=== PATIENT | male | born 1935 | race Caucasian/White ===

== ENCOUNTER 2018-02-08 21:59 | Inpatient (IN) | payer MEDICARE, MEDICAID ==
[~2018-02-08] VITALS: Ht 177.8 cm; Wt 65.0 kg
[~2018-02-08 21:59] MED LIST: ALEN70TA48 PO; AMIO200T54 PO; APIX5TAB3 PO; ATOR40TA PO; CARV3.12 PO; COMP-13; DOCU-29 PO; FERR325T28 PO; FOLI1TAB16 PO; FURO40TA4 PO; LISI-604 PO; PER10325T PO; ROSU20TA PO
[2018-02-08] MEDS ORDERED: fentaNYL/PF 50MCG/1 ML 2ML syringe IV ONE ×2 (22:20→23:55)
[2018-02-08] MEDS ORDERED: TETanus/Pertussis (Acell)/Diphther VAC/PF (Tdap-Adult) 0.5ml syringe IM ONE (22:55)
[2018-02-08 23:23] LABS: BASOPHILS % (AUTO) 0.5 % (0-1); EOSINOPHILS # (AUTO) 0.2 X10'3 (0-0.9); HEMATOCRIT 43.7 % (42.0-52.0); HEMOGLOBIN 14.9 g/dl (14.0-17.9); LYMPHOCYTES # (AUTO) 1.5 X10'3 (1.1-4.8); LYMPHOCYTES % (AUTO) 17.6 % (21-51); MEAN CORPUSCULAR HEMOGLOBIN 31.7 PG (27.0-31.0); MEAN CORPUSCULAR HGB CONC 34.1 % (33.0-36.5); MONOCYTES # (AUTO) 0.5 X10'3 (0-0.9); MONOCYTES % (AUTO) 5.7 % (2-12); NEUTROPHILS # (AUTO) 6.2 X10'3 (1.8-7.7); NEUTROPHILS % (AUTO) 74.2 % (42-75); PLATELET COUNT 147 X10'3 (140-440); RED BLOOD COUNT 4.71 X10'6 (4.70-6.10); RED CELL DISTRIBUTION WIDTH 13.9 % (11.5-14.5); WHITE BLOOD COUNT 8.3 X10'3 (4.5-11.0)
[2018-02-08 23:32] LABS: INR 1.2 INR; PARTIAL THROMBOPLASTIN TIME 29 SECONDS (22-32)
[2018-02-08 23:39] LABS: ALANINE AMINOTRANSFERASE 21 U/L (12-78); ALBUMIN 3.4 G/DL (3.4-5.0); ALBUMIN/GLOBULIN RATIO 1.1 (1.1-1.5); ALKALINE PHOSPHATASE 110 IU/L (46-116); ANION GAP 7 (8-16); ASPARTATE AMINO TRANSFERASE 14 U/L (10-37); BILIRUBIN,TOTAL 0.7 MG/DL (0.1-1.0); BLOOD UREA NITROGEN 21 MG/DL (7-18); BUN/CREATININE RATIO 18.6 (5.4-32.0); CALCIUM 9.4 MG/DL (8.5-10.1); CHLORIDE 103 MMOL/L (99-107); CREATININE 1.13 MG/DL (0.60-1.10); GLUCOSE 120 MG/DL (70-104); POTASSIUM 4.1 MMOL/L (3.5-5.1); SODIUM 136 MMOL/L (135-145); TOTAL CARBON DIOXIDE 26.5 MMOL/L (24-32); TOTAL PROTEIN 6.5 G/DL (6.4-8.2); eGFR 62 ML/MIN
[2018-02-08 23:43] LABS: GIANT PLATELET FEW; LARGE PLATELETS FEW; PLATELET ESTIMATE NORMAL
[2018-02-08 23:46] LABS: CLARITY,URINE CLOUDY (Clear); COLOR,URINE YELLOW (Yellow); GLUCOSE, URINE NEGATIVE (Neg); KETONES,URINE TRACE mg/dl (Neg); LEUKOCYTE ESTERASE ,URINE TRACE (Neg); NITRITES, URINE NEGATIVE (Neg); OCCULT BLOOD,URINE NEGATIVE (Neg); PH,URINE 5.5 (4.8-8.0); PROTEIN,URINE TRACE mg/dl (Neg); UROBILINOGEN,URINE 0.2 E.U/dL (0.2-1.0)
[2018-02-08 23:50] LABS: UA COLLECTION TYPE CLN CATCH MIDSTREAM
[2018-02-08 23:51] LABS: MUCUS STRANDS FEW /LPF (Neg); SQUAMOUS EPITHELIAL CELL,UR FEW /LPF (FEW); YEAST MANY /HPF (NEGATIVE)
[2018-02-08 23:52] LABS: BACTERIA,URINE FEW /HPF (Neg)
[2018-02-08 23:53] LABS: HYALINE CASTS 0-3 /LPF (NEGATIVE); RBC,URINE 0-2 /HPF (0-2); WBC,URINE 20-30 /HPF (0-4)
[2018-02-09] VITALS (19 sets, daily range): BP systolic 105–155; BP diastolic 48–96
[2018-02-09] MEDS ORDERED: CefTRIAXone 2gm/D5W 50ml 50 ML IV ONE (00:35)
[2018-02-09] MEDS ORDERED: morphine 4 MG/ML inj SYRINge IV PRN ×3 (01:35→15:10)
[2018-02-09] MEDS ORDERED: mag hydrox/Alum hydrox/simeth 30ml oral suspension PO PRN (01:35)
[2018-02-09] MEDS ORDERED: acetaminophen 325mg tablet PO PRN ×2 (01:35)
[2018-02-09] MEDS ORDERED: docusate sod 100mg capsule PO PRN (01:35)
[2018-02-09] MEDS ORDERED: ondansetron/PF 4mg/2ml inj IV PRN ×2 (01:35→15:10)
[2018-02-09] MEDS ORDERED: morphine 2 MG/ML inj. syringe IV ONE (01:45)
[2018-02-09] MEDS: normal saline 1000ml 1,000 ML IV SCH ×2 (03:43→19:23)
[2018-02-09] MEDS ORDERED: ceFAZolin 1000mg inj ONE (11:16)
[2018-02-09] MEDS ORDERED: vancomycin 1,000mg inj ONE (11:16)
[2018-02-09] MEDS ORDERED: ceFAZolin 1GM/D5W- ADD-VANTAGE 50 ML IV SCH ×2 (12:00→16:00)
[2018-02-09] MEDS: CefTRIAXone 2gm/D5W 50ml 50 ML IV SCH (12:00)
[2018-02-09] MEDS ORDERED: fentaNYL/PF 50MCG/1 ML 2ML syringe ONE ×2 (12:18→13:25)
[2018-02-09] MEDS ORDERED: midazolam 2 mg/2 ml injection ONE (12:21)
[2018-02-09] MEDS ORDERED: ringers solution, lacted 1,000 ML IV SCH (15:10)
[2018-02-09] MEDS ORDERED: meperidine/PF 25mg/ml syringe IV PRN ×3 (15:10)
[2018-02-09] MEDS ORDERED: proCHLORperazine 10 MG/2 ml inj IV PRN (15:10)
[2018-02-09] MEDS ORDERED: phenylephrine 10mg/ml inj. ONE (15:22)
[2018-02-09] MEDS ORDERED: propofol inj 20 ML IV ONE (15:22)
[2018-02-09] MEDS ORDERED: LIDOcaine 1%/PF 5ML 10 MG/ML VIAL ONE (15:22)
[2018-02-09] MEDS: morphine 4 MG/ML inj SYRINge IV PRN ×2 (17:38→23:50)
[2018-02-09] MEDS: ceFAZolin 1GM/D5W- ADD-VANTAGE 50 ML IV SCH (20:55)
[2018-02-10 02:15] VITALS: BP 99/64
[2018-02-10] MEDS: ceFAZolin 1GM/D5W- ADD-VANTAGE 50 ML IV SCH (05:00)
[2018-02-10] MEDS: morphine 4 MG/ML inj SYRINge IV PRN ×2 (05:04→08:43)
[2018-02-10 06:00] VITALS: BP 139/72
[2018-02-10 07:42] LABS: BASOPHILS % (AUTO) 0.4 % (0-1); EOSINOPHILS % (AUTO) 0.2 % (0-6); HEMATOCRIT 38.2 % (42.0-52.0); HEMOGLOBIN 12.9 g/dl (14.0-17.9); LYMPHOCYTES # (AUTO) 1.2 X10'3 (1.1-4.8); LYMPHOCYTES % (AUTO) 14.5 % (21-51); MEAN CORPUSCULAR HEMOGLOBIN 31.2 PG (27.0-31.0); MEAN CORPUSCULAR HGB CONC 33.8 % (33.0-36.5); MEAN CORPUSCULAR VOLUME 92.5 FL (78-98); MEAN PLATELET VOLUME 11.4 FL (7.4-10.4); MONOCYTES # (AUTO) 0.9 X10'3 (0-0.9); MONOCYTES % (AUTO) 10.7 % (2-12); NEUTROPHILS # (AUTO) 6.3 X10'3 (1.8-7.7); NEUTROPHILS % (AUTO) 74.2 % (42-75); PLATELET COUNT 128 X10'3 (140-440); RED BLOOD COUNT 4.13 X10'6 (4.70-6.10); RED CELL DISTRIBUTION WIDTH 14.1 % (11.5-14.5); WHITE BLOOD COUNT 8.5 X10'3 (4.5-11.0)
[2018-02-10 08:00] LABS: ALBUMIN 2.6 G/DL (3.4-5.0); ANION GAP 6 (8-16); BLOOD UREA NITROGEN 14 MG/DL (7-18); BUN/CREATININE RATIO 13.6 (5.4-32.0); CALCIUM 8.6 MG/DL (8.5-10.1); CHLORIDE 105 MMOL/L (99-107); CREATININE 1.03 MG/DL (0.60-1.10); GLUCOSE 106 MG/DL (70-104); POTASSIUM 4.2 MMOL/L (3.5-5.1); SODIUM 137 MMOL/L (135-145); TOTAL CARBON DIOXIDE 26.2 MMOL/L (24-32); eGFR 69 ML/MIN
[2018-02-10 08:35] LABS: LARGE PLATELETS FEW; PLATELET ESTIMATE DECREASED
[2018-02-10] MEDS: normal saline 1000ml 1,000 ML IV SCH ×2 (09:56→20:46)
[2018-02-10 10:00] VITALS: BP 134/114
[2018-02-10] MEDS ORDERED: carVEDilol 3.125mg tablet PO SCH (10:35)
[2018-02-10] MEDS: apixaban 5mg tablet PO SCH ×2 (11:00→21:21)
[2018-02-10] MEDS: HYDROcodone/acetaminophen 10/325mg tab PO PRN ×2 (11:01→16:22)
[2018-02-10] MEDS: CefTRIAXone 2gm/D5W 50ml 50 ML IV SCH (12:09)
[2018-02-10] MEDS ORDERED: KEN0.1O TP (12:40)
[2018-02-10] MEDS ORDERED: OMEP40CA37 PO (12:42)
[2018-02-10] MEDS ORDERED: TERA1CAP4 PO (12:43)
[2018-02-10] MEDS ORDERED: LEVO50TA66 PO (12:45)
[2018-02-10] MEDS ORDERED: TERB30CR22 TP (12:46)
[2018-02-10] MEDS ORDERED: PREG50CA PO (12:48)
[2018-02-10] MEDS ORDERED: FLUO20CA39 PO (12:49)
[2018-02-10] MEDS ORDERED: LEVO75TA7 PO (12:52)
[2018-02-10] MEDS ORDERED: MYCOL15O TP (12:54)
[2018-02-10] MEDS ORDERED: SEVE800T8 PO (12:56)
[2018-02-10] MEDS ORDERED: ROPI1TAB2 PO (12:59)
[2018-02-10] MEDS ORDERED: EPOE1000 SUBCUT (14:32)
[2018-02-10] MEDS ORDERED: sevelamer carbonate 800mg tablet PO SCH (16:00)
[2018-02-10 18:00] VITALS: BP 97/57
[2018-02-10] MEDS: carVEDilol 3.125mg tablet PO SCH (20:00)
[2018-02-10] MEDS: furosemide 40mg tablet PO SCH (20:00)
[2018-02-10] MEDS: triamcinolone acet 0.1% cream 15gm TP SCH (20:00)
[2018-02-10] MEDS: Terazosin 1mg capsule PO SCH (20:56)
[2018-02-10] MEDS ORDERED: non-formulary drug (Atorvastatin Calcium* (Lipitor*) 1 TABLET) PO SCH (21:00)
[2018-02-10] MEDS ORDERED: ROPINIRole 1mg tablet PO SCH (21:00)
[2018-02-10] MEDS: atorvastatin 20mg tablet PO SCH (21:21)
[2018-02-10] MEDS: amiodarone 200mg tablet PO SCH (21:21)
[2018-02-10 22:00] VITALS: BP 109/55
[2018-02-11] MEDS: normal saline 1000ml 1,000 ML IV SCH ×2 (01:13→15:18)
[2018-02-11] MEDS: HYDROcodone/acetaminophen 10/325mg tab PO PRN ×2 (05:17→20:01)
[2018-02-11] MEDS: magnesium hydroxide 30ml (MOM) UD suspension PO PRN (05:17)
[2018-02-11 06:00] VITALS: BP 140/63
[2018-02-11 06:56] LABS: BASOPHILS % (AUTO) 0.3 % (0-1); EOSINOPHILS % (AUTO) 0.2 % (0-6); HEMATOCRIT 35.6 % (42.0-52.0); HEMOGLOBIN 11.8 g/dl (14.0-17.9); LYMPHOCYTES % (AUTO) 9.7 % (21-51); MEAN CORPUSCULAR HEMOGLOBIN 30.9 PG (27.0-31.0); MEAN CORPUSCULAR HGB CONC 33.1 % (33.0-36.5); MEAN CORPUSCULAR VOLUME 93.2 FL (78-98); MEAN PLATELET VOLUME 11.4 FL (7.4-10.4); MONOCYTES % (AUTO) 9.7 % (2-12); NEUTROPHILS # (AUTO) 8.1 X10'3 (1.8-7.7); NEUTROPHILS % (AUTO) 80.1 % (42-75); PLATELET COUNT 113 X10'3 (140-440); RED BLOOD COUNT 3.82 X10'6 (4.70-6.10); RED CELL DISTRIBUTION WIDTH 14.4 % (11.5-14.5); WHITE BLOOD COUNT 10.1 X10'3 (4.5-11.0)
[2018-02-11 07:24] LABS: ALBUMIN 2.3 G/DL (3.4-5.0); ANION GAP 6 (8-16); BLOOD UREA NITROGEN 17 MG/DL (7-18); BUN/CREATININE RATIO 16.2 (5.4-32.0); CALCIUM 8.6 MG/DL (8.5-10.1); CHLORIDE 105 MMOL/L (99-107); CREATININE 1.05 MG/DL (0.60-1.10); GLUCOSE 103 MG/DL (70-104); SODIUM 138 MMOL/L (135-145); TOTAL CARBON DIOXIDE 26.9 MMOL/L (24-32); eGFR 67 ML/MIN
[2018-02-11 07:56] LABS: LARGE PLATELETS FEW; PLATELET ESTIMATE DECREASED
[2018-02-11] MEDS: docusate sod 100mg capsule PO SCH (08:00)
[2018-02-11] MEDS: triamcinolone acet 0.1% cream 15gm TP SCH ×2 (08:00→20:00)
[2018-02-11] MEDS ORDERED: FLUoxetine 20mg capsule PO SCH (08:00)
[2018-02-11] MEDS: pantoprazole 40mg Tablet.DR PO SCH (09:57)
[2018-02-11] MEDS: carVEDilol 3.125mg tablet PO SCH ×2 (09:58→20:00)
[2018-02-11] MEDS: lisinopril 5mg tablet PO SCH (09:58)
[2018-02-11] MEDS: apixaban 5mg tablet PO SCH ×2 (09:59→20:01)
[2018-02-11] MEDS: folic acid 1mg tablet PO SCH (09:59)
[2018-02-11 10:00] VITALS: BP 96/72
[2018-02-11] MEDS: amiodarone 200mg tablet PO SCH ×2 (10:00→20:00)
[2018-02-11] MEDS: furosemide 40mg tablet PO SCH ×2 (10:01→20:00)
[2018-02-11] MEDS: levoTHYROXINE 75mcg tablet PO SCH (10:02)
[2018-02-11] MEDS: CefTRIAXone 2gm/D5W 50ml 50 ML IV SCH (12:18)
[2018-02-11 18:00] VITALS: BP 91/56
[2018-02-11] MEDS: lactobacillus rhamnosus 10,000 MMU CELLS/CAPSULE PO SCH (20:01)
[2018-02-11] MEDS: Terazosin 1mg capsule PO SCH (21:00)
[2018-02-11] MEDS: atorvastatin 20mg tablet PO SCH (21:00)
[2018-02-11 22:00] VITALS: BP 92/57
[2018-02-12] MEDS: HYDROcodone/acetaminophen 10/325mg tab PO PRN ×3 (04:48→22:19)
[2018-02-12 05:00] VITALS: BP 100/65
[2018-02-12] MEDS: triamcinolone acet 0.1% cream 15gm TP SCH ×2 (08:00→20:00)
[2018-02-12] MEDS: levoTHYROXINE 75mcg tablet PO SCH (08:00)
[2018-02-12] MEDS: lisinopril 5mg tablet PO SCH (08:00)
[2018-02-12] MEDS: furosemide 40mg tablet PO SCH ×2 (08:00→20:00)
[2018-02-12 10:09] VITALS: BP 123/77
[2018-02-12] MEDS: amiodarone 200mg tablet PO SCH ×2 (10:12→20:22)
[2018-02-12] MEDS: docusate sod 100mg capsule PO SCH (10:12)
[2018-02-12] MEDS: pantoprazole 40mg Tablet.DR PO SCH (10:12)
[2018-02-12] MEDS: apixaban 5mg tablet PO SCH ×2 (10:13→20:22)
[2018-02-12] MEDS: lactobacillus rhamnosus 10,000 MMU CELLS/CAPSULE PO SCH ×2 (10:13→20:22)
[2018-02-12] MEDS: carVEDilol 3.125mg tablet PO SCH ×2 (10:13→20:00)
[2018-02-12] MEDS: folic acid 1mg tablet PO SCH (10:13)
[2018-02-12 13:35] LABS: BASOPHILS % (AUTO) 0.2 % (0-1); EOSINOPHILS # (AUTO) 0.1 X10'3 (0-0.9); EOSINOPHILS % (AUTO) 0.9 % (0-6); HEMATOCRIT 34.6 % (42.0-52.0); HEMOGLOBIN 11.4 g/dl (14.0-17.9); LYMPHOCYTES # (AUTO) 0.9 X10'3 (1.1-4.8); LYMPHOCYTES % (AUTO) 10.5 % (21-51); MEAN CORPUSCULAR HGB CONC 32.9 % (33.0-36.5); MEAN CORPUSCULAR VOLUME 94.2 FL (78-98); MONOCYTES # (AUTO) 0.4 X10'3 (0-0.9); MONOCYTES % (AUTO) 4.5 % (2-12); NEUTROPHILS # (AUTO) 7.2 X10'3 (1.8-7.7); NEUTROPHILS % (AUTO) 83.9 % (42-75); PLATELET COUNT 140 X10'3 (140-440); RED BLOOD COUNT 3.67 X10'6 (4.70-6.10); RED CELL DISTRIBUTION WIDTH 14.6 % (11.5-14.5); WHITE BLOOD COUNT 8.6 X10'3 (4.5-11.0)
[2018-02-12 13:57] LABS: ALBUMIN 2.3 G/DL (3.4-5.0); ANION GAP 6 (8-16); BLOOD UREA NITROGEN 25 MG/DL (7-18); BUN/CREATININE RATIO 22.5 (5.4-32.0); CALCIUM 9.2 MG/DL (8.5-10.1); CHLORIDE 105 MMOL/L (99-107); CREATININE 1.11 MG/DL (0.60-1.10); GLUCOSE 115 MG/DL (70-104); POTASSIUM 3.8 MMOL/L (3.5-5.1); SODIUM 138 MMOL/L (135-145); TOTAL CARBON DIOXIDE 26.9 MMOL/L (24-32); eGFR 63 ML/MIN
[2018-02-12] MEDS: albuterol 1.25 MG/3 ML (1/2 strength) nebule NEB SCH ×3 (17:55→23:00)
[2018-02-12 18:00] VITALS: BP 99/49
[2018-02-12] MEDS: Terazosin 1mg capsule PO SCH (20:14)
[2018-02-12] MEDS: atorvastatin 20mg tablet PO SCH (20:23)
[2018-02-12] MEDS: magnesium hydroxide 30ml (MOM) UD suspension PO PRN (21:59)
[2018-02-12 22:00] VITALS: BP 92/86
[2018-02-13] MEDS: albuterol 1.25 MG/3 ML (1/2 strength) nebule NEB SCH ×4 (03:12→15:00)
[2018-02-13 05:00] VITALS: BP 105/89
[2018-02-13] MEDS: HYDROcodone/acetaminophen 10/325mg tab PO PRN ×2 (05:30→15:02)
[2018-02-13 06:55] LABS: BASOPHILS % (AUTO) 0.5 % (0-1); EOSINOPHILS # (AUTO) 0.2 X10'3 (0-0.9); HEMATOCRIT 31.5 % (42.0-52.0); HEMOGLOBIN 10.5 g/dl (14.0-17.9); LYMPHOCYTES # (AUTO) 0.9 X10'3 (1.1-4.8); LYMPHOCYTES % (AUTO) 11.3 % (21-51); MEAN CORPUSCULAR HGB CONC 33.4 % (33.0-36.5); MEAN CORPUSCULAR VOLUME 92.8 FL (78-98); MEAN PLATELET VOLUME 9.9 FL (7.4-10.4); MONOCYTES # (AUTO) 0.6 X10'3 (0-0.9); MONOCYTES % (AUTO) 7.5 % (2-12); NEUTROPHILS # (AUTO) 6.2 X10'3 (1.8-7.7); NEUTROPHILS % (AUTO) 78.7 % (42-75); PLATELET COUNT 156 X10'3 (140-440); RED BLOOD COUNT 3.39 X10'6 (4.70-6.10); RED CELL DISTRIBUTION WIDTH 14.5 % (11.5-14.5); WHITE BLOOD COUNT 7.8 X10'3 (4.5-11.0)
[2018-02-13 07:18] LABS: ALBUMIN 2.2 G/DL (3.4-5.0); ANION GAP 6 (8-16); BLOOD UREA NITROGEN 28 MG/DL (7-18); CHLORIDE 106 MMOL/L (99-107); CREATININE 1.12 MG/DL (0.60-1.10); GLUCOSE 110 MG/DL (70-104); POTASSIUM 3.9 MMOL/L (3.5-5.1); SODIUM 140 MMOL/L (135-145); TOTAL CARBON DIOXIDE 28.4 MMOL/L (24-32); eGFR 62 ML/MIN
[2018-02-13 07:27] VITALS: BP 97/50
[2018-02-13] MEDS: amiodarone 200mg tablet PO SCH ×2 (07:28→20:00)
[2018-02-13] MEDS: pantoprazole 40mg Tablet.DR PO SCH (07:28)
[2018-02-13] MEDS: docusate sod 100mg capsule PO SCH (07:28)
[2018-02-13] MEDS: levoTHYROXINE 75mcg tablet PO SCH (07:29)
[2018-02-13] MEDS: apixaban 5mg tablet PO SCH ×2 (07:29→20:00)
[2018-02-13] MEDS: lactobacillus rhamnosus 10,000 MMU CELLS/CAPSULE PO SCH ×2 (07:29→20:00)
[2018-02-13] MEDS: furosemide 40mg tablet PO SCH ×2 (07:29→20:00)
[2018-02-13] MEDS: lisinopril 5mg tablet PO SCH (07:29)
[2018-02-13] MEDS: carVEDilol 3.125mg tablet PO SCH ×2 (07:29→20:00)
[2018-02-13] MEDS: folic acid 1mg tablet PO SCH (07:29)
[2018-02-13] MEDS: triamcinolone acet 0.1% cream 15gm TP SCH ×2 (08:00→20:00)
[2018-02-13 10:00] VITALS: BP 97/56
[2018-02-13 18:00] VITALS: BP 123/66
[2018-02-13 20:53] VITALS: BP 96/58
[2018-02-13] MEDS: Terazosin 1mg capsule PO SCH (20:56)
[2018-02-13] MEDS: atorvastatin 20mg tablet PO SCH (20:57)
[2018-02-14] MEDS: HYDROcodone/acetaminophen 10/325mg tab PO PRN ×4 (01:43→14:45)
[2018-02-14 06:00] VITALS: BP 121/71
[2018-02-14 06:09] LABS: BASOPHILS % (AUTO) 0.2 % (0-1); EOSINOPHILS # (AUTO) 0.1 X10'3 (0-0.9); EOSINOPHILS % (AUTO) 1.1 % (0-6); HEMATOCRIT 32.3 % (42.0-52.0); HEMOGLOBIN 10.8 g/dl (14.0-17.9); LYMPHOCYTES % (AUTO) 12.1 % (21-51); MEAN CORPUSCULAR HEMOGLOBIN 31.2 PG (27.0-31.0); MEAN CORPUSCULAR HGB CONC 33.2 % (33.0-36.5); MEAN PLATELET VOLUME 10.6 FL (7.4-10.4); MONOCYTES # (AUTO) 0.7 X10'3 (0-0.9); MONOCYTES % (AUTO) 8.6 % (2-12); NEUTROPHILS # (AUTO) 6.3 X10'3 (1.8-7.7); PLATELET COUNT 191 X10'3 (140-440); RED BLOOD COUNT 3.44 X10'6 (4.70-6.10); RED CELL DISTRIBUTION WIDTH 14.5 % (11.5-14.5); WHITE BLOOD COUNT 8.1 X10'3 (4.5-11.0)
[2018-02-14 06:14] LABS: ALBUMIN 2.2 G/DL (3.4-5.0); ANION GAP 4 (8-16); BLOOD UREA NITROGEN 30 MG/DL (7-18); CALCIUM 9.1 MG/DL (8.5-10.1); CHLORIDE 106 MMOL/L (99-107); CREATININE 1.11 MG/DL (0.60-1.10); GLUCOSE 108 MG/DL (70-104); POTASSIUM 4.5 MMOL/L (3.5-5.1); SODIUM 140 MMOL/L (135-145); TOTAL CARBON DIOXIDE 30.2 MMOL/L (24-32); eGFR 63 ML/MIN
[2018-02-14 07:06] LABS: LARGE PLATELETS FEW; PLATELET ESTIMATE NORMAL
[2018-02-14] MEDS: lisinopril 5mg tablet PO SCH (08:00)
[2018-02-14] MEDS: carVEDilol 3.125mg tablet PO SCH (08:00)
[2018-02-14] MEDS: furosemide 40mg tablet PO SCH (08:00)
[2018-02-14] MEDS: triamcinolone acet 0.1% cream 15gm TP SCH (08:00)
[2018-02-14 08:33] VITALS: BP 99/68
[2018-02-14] MEDS: pantoprazole 40mg Tablet.DR PO SCH (08:34)
[2018-02-14] MEDS: amiodarone 200mg tablet PO SCH (08:35)
[2018-02-14] MEDS: apixaban 5mg tablet PO SCH (08:35)
[2018-02-14] MEDS: folic acid 1mg tablet PO SCH (08:35)
[2018-02-14] MEDS: docusate sod 100mg capsule PO SCH (08:35)
[2018-02-14] MEDS: levoTHYROXINE 75mcg tablet PO SCH (08:35)
[2018-02-14] MEDS: lactobacillus rhamnosus 10,000 MMU CELLS/CAPSULE PO SCH (08:35)
[2018-02-14 10:00] VITALS: BP 116/55
== END 2018-02-14 15:00 | DRG 481 ==
LOC: ER 21:59 → ED HOLD 02-09 01:31 → ORTHO 4S 02-09 02:00
PROVIDERS: ADMIT Internal Medicine; ATTEND Family Medicine
PROC: 2W3QX2Z Immobilization of Right Lower Leg using Cast (ICD-10-PCS; 2018-02-09)
PROC: BQ101ZZ Fluoroscopy of Right Hip using Low Osmolar Contrast (ICD-10-PCS; 2018-02-09)
PROC: 0QS604Z Reposition Right Upper Femur with Internal Fixation Device, Open Approach (ICD-10-PCS; principal; 2018-02-09 12:00)
DX: S72.144A Nondisplaced intertrochanteric fracture of right femur, initial encounter for closed fracture (principal); M97.01XA Periprosthetic fracture around internal prosthetic right hip joint, initial encounter; J98.11 Atelectasis; N17.9 Acute kidney failure, unspecified; B37.49 Other urogenital candidiasis; M80.861A Other osteoporosis with current pathological fracture, right lower leg, initial encounter for fracture; E03.9 Hypothyroidism, unspecified; E78.5 Hyperlipidemia, unspecified; W01.0XXA Fall on same level from slipping, tripping and stumbling without subsequent striking against object, initial encounter; S61.011A Laceration without foreign body of right thumb without damage to nail, initial encounter; G47.30 Sleep apnea, unspecified; I10 Essential (primary) hypertension; F32.9 Major depressive disorder, single episode, unspecified; I48.91 Unspecified atrial fibrillation; K21.9 Gastro-esophageal reflux disease without esophagitis; Z79.890 Hormone replacement therapy; Z79.899 Other long term (current) drug therapy; Z79.01 Long term (current) use of anticoagulants; Z87.442 Personal history of urinary calculi; Z87.891 Personal history of nicotine dependence; Y93.89 Activity, other specified; Y92.098 Other place in other non-institutional residence as the place of occurrence of the external cause; Y99.8 Other external cause status
CPT/HCPCS: 36415; 71045; 73502; 73600; 76001; 80048; 80053; 81001; 84443; 84484; 85025; 85610; 85730; 86885; 86900; 86901; 87070; 87077; 87088; 90715; 93005; 94640; 94760; 96365; 96372; 96375; 97110; 97116; 97161; 97530; 99285; A4315; A6258; A6449; A7000; A9272; C9250; J0690; J0696; J2001; J2175; J2250; J2270; J2370; J2704; J3010; J3370; J7030; J7120

== ENCOUNTER 2018-03-13 10:47 | Outpatient (CLI) | payer MEDICARE, MEDICAID ==
[2018-03-13 10:45] VITALS: BP 145/83
[~2018-03-13 10:47] MED LIST changes: -FERR325T28 PO; -FOLI1TAB16 PO; +KEN0.1O TP; +LEVO50TA66 PO; +TERA1CAP4 PO; +TERB30CR22 TP
== END 2018-03-13 11:50 | disposition home or self-care (01) ==
LOC: ORTHO 10:47
PROVIDERS: ATTEND Nurse Practitioner Family
DX: S82.244A Nondisplaced spiral fracture of shaft of right tibia, initial encounter for closed fracture (principal); M97.01XA Periprosthetic fracture around internal prosthetic right hip joint, initial encounter; I70.8 Atherosclerosis of other arteries; I11.0 Hypertensive heart disease with heart failure; I50.9 Heart failure, unspecified; Z91.013 Allergy to seafood; W19.XXXA Unspecified fall, initial encounter; Y93.89 Activity, other specified; Y92.89 Other specified places as the place of occurrence of the external cause; Y99.8 Other external cause status
CPT/HCPCS: 73552; 73590; 73610; 99214; A6449

== ENCOUNTER 2018-04-03 11:21 | Outpatient (CLI) | payer MEDICARE, MEDICAID ==
[2018-04-03 11:20] VITALS: BP 139/93
== END 2018-04-03 12:00 | disposition home or self-care (01) ==
LOC: ORTHO 11:21
PROVIDERS: ATTEND Nurse Practitioner Family
DX: M97.01XD Periprosthetic fracture around internal prosthetic right hip joint, subsequent encounter (principal); S82.201D Unspecified fracture of shaft of right tibia, subsequent encounter for closed fracture with routine healing; I11.0 Hypertensive heart disease with heart failure; I50.9 Heart failure, unspecified; Z91.013 Allergy to seafood; Z87.891 Personal history of nicotine dependence; X58.XXXD Exposure to other specified factors, subsequent encounter
CPT/HCPCS: 73502; 73590; 99213

== ENCOUNTER 2018-07-09 09:25 | Inpatient (IN) | payer MEDICARE, MEDICAID ==
[~2018-07-09] VITALS: Ht 177.8 cm; Wt 81.8 kg
[2018-07-09] MEDS ORDERED: furosemide 40mg/4ml inj IV ONE (10:15)
[2018-07-09] MEDS ORDERED: furosemide 10 MG/1 ML 10ml inj IV ONE (10:15)
[2018-07-09 11:31] LABS: BASOPHILS % (AUTO) 0.5 % (0-1); EOSINOPHILS # (AUTO) 0.1 X10'3 (0-0.9); EOSINOPHILS % (AUTO) 2.2 % (0-6); HEMATOCRIT 44.9 % (42.0-52.0); HEMOGLOBIN 14.4 g/dl (14.0-17.9); LYMPHOCYTES # (AUTO) 1.1 X10'3 (1.1-4.8); LYMPHOCYTES % (AUTO) 16.7 % (21-51); MEAN CORPUSCULAR HEMOGLOBIN 28.3 PG (27.0-31.0); MEAN CORPUSCULAR VOLUME 88.4 FL (78-98); MONOCYTES # (AUTO) 0.6 X10'3 (0-0.9); MONOCYTES % (AUTO) 8.5 % (2-12); NEUTROPHILS # (AUTO) 4.8 X10'3 (1.8-7.7); NEUTROPHILS % (AUTO) 72.1 % (42-75); PLATELET COUNT 165 X10'3 (140-440); RED BLOOD COUNT 5.08 X10'6 (4.70-6.10); RED CELL DISTRIBUTION WIDTH 16.7 % (11.5-14.5); WHITE BLOOD COUNT 6.7 X10'3 (4.5-11.0)
[2018-07-09 11:45] LABS: INR 1.3 INR; PARTIAL THROMBOPLASTIN TIME 30 SECONDS (22-32); PROTHROMBIN TIME 13.2 SECONDS (9.0-12.0)
[2018-07-09 11:49] LABS: ALANINE AMINOTRANSFERASE 22 U/L (12-78); ALBUMIN 3.7 G/DL (3.4-5.0); ALBUMIN/GLOBULIN RATIO 1.2 (1.1-1.5); ALKALINE PHOSPHATASE 98 IU/L (46-116); ANION GAP 10 (8-16); ASPARTATE AMINO TRANSFERASE 18 U/L (10-37); BILIRUBIN,TOTAL 1.3 MG/DL (0.1-1.0); BLOOD UREA NITROGEN 28 MG/DL (7-18); BUN/CREATININE RATIO 19.9 (5.4-32.0); CALCIUM 9.1 MG/DL (8.5-10.1); CHLORIDE 109 MMOL/L (99-107); CREATININE 1.41 MG/DL (0.60-1.10); GLUCOSE 99 MG/DL (70-104); POTASSIUM 4.1 MMOL/L (3.5-5.1); SODIUM 145 MMOL/L (135-145); TOTAL CARBON DIOXIDE 25.6 MMOL/L (24-32); TOTAL PROTEIN 6.9 G/DL (6.4-8.2); eGFR 48 ML/MIN
[2018-07-09 12:05] VITALS: BP 151/94
[2018-07-09] MEDS ORDERED: mag hydrox/Alum hydrox/simeth 30ml oral suspension PO PRN (12:15)
[2018-07-09] MEDS ORDERED: magnesium hydroxide 30ml (MOM) UD suspension PO PRN (12:15)
[2018-07-09] MEDS ORDERED: ondansetron/PF 4mg/2ml inj IV PRN (12:15)
[2018-07-09] MEDS ORDERED: magnesium Cl slow-release 64mg tablet PO PRN (12:15)
[2018-07-09] MEDS ORDERED: magnesium 4gm in 100ml NS 100 ML IV PRN (12:15)
[2018-07-09] MEDS ORDERED: potassium Cl 20 mEq SR tablet PO PRN ×2 (12:15)
[2018-07-09] MEDS ORDERED: morphine 4 MG/ML inj SYRINge IV PRN (12:15)
[2018-07-09] MEDS ORDERED: acetaminophen 325mg tablet PO PRN (12:15)
[2018-07-09] MEDS ORDERED: potassium Cl 40MEQ/NS 500ml 500 ML IV PRN ×2 (12:15)
[2018-07-09] MEDS ORDERED: LEVO88TA39 PO (12:30)
[2018-07-09] MEDS ORDERED: FURO-150 PO (12:30)
[2018-07-09] MEDS ORDERED: DOCU-28 PO (12:30)
[2018-07-09] MEDS ORDERED: lisinopril 5mg tablet PO SCH (12:45)
[2018-07-09] MEDS ORDERED: oxyCODONE/APAP 10/325mg tablet PO PRN (12:45)
[2018-07-09] MEDS ORDERED: docusate sod 100mg capsule PO PRN (12:45)
[2018-07-09] MEDS ORDERED: azithromycin/NS 500mg/250ml 250 ML IV ONE (12:45)
[2018-07-09] MEDS ORDERED: CefTRIAXone/D5W-Rocephin 1gm 50 ML IV SCH (12:45)
[2018-07-09] MEDS ORDERED: azithromycin/NS 500mg/250ml 250 ML IV SCH (12:51)
[2018-07-09] MEDS ORDERED: furosemide 40mg/4ml inj IV SCH (13:00)
[2018-07-09] MEDS ORDERED: LIDOcaine 2% 10ml TOPICAL JELLY (Urojet) MM ONE (13:10)
[2018-07-09] MEDS ORDERED: LEVO750T21 PO (13:17)
[2018-07-09] MEDS ORDERED: triamcinolone acet 0.1% cream 15gm TP SCH (20:00)
[2018-07-09] MEDS ORDERED: carVEDilol 3.125mg tablet PO SCH (20:00)
[2018-07-09] MEDS ORDERED: amiodarone 200mg tablet PO SCH (20:00)
[2018-07-09] MEDS ORDERED: heparin, porcine 5000 units/ml vial SQ SCH (20:00)
[2018-07-09] MEDS ORDERED: apixaban 5mg tablet PO SCH (20:00)
[2018-07-09] MEDS ORDERED: atorvastatin 20mg tablet PO SCH (21:00)
[2018-07-09] MEDS ORDERED: Terazosin 1mg capsule PO SCH (21:00)
[2018-07-10] MEDS ORDERED: levoTHYROXINE 88mcg tablet PO SCH (08:00)
[2018-07-10] MEDS ORDERED: K and/or MAG REPLACEMENT MC SCH (08:00)
== END 2018-07-09 13:05 | disposition left against medical advice (07) | DRG 291 ==
LOC: ER 09:26 → ED HOLD 12:13
PROVIDERS: ADMIT Internal Medicine; ATTEND Internal Medicine
DX: I50.9 Heart failure, unspecified (principal); J18.9 Pneumonia, unspecified organism; I48.91 Unspecified atrial fibrillation; H91.90 Unspecified hearing loss, unspecified ear; Z53.21 Procedure and treatment not carried out due to patient leaving prior to being seen by health care provider; Z91.013 Allergy to seafood; Z87.442 Personal history of urinary calculi
CPT/HCPCS: 36415; 71045; 80053; 83880; 84484; 85025; 85610; 85730; 87040; 93005; 96374; 99285; G0378; J1940